=== PATIENT | female | born 1975 | race Two or more races ===

== ENCOUNTER 2024-07-13 13:34 | Emergency (ER) | payer MEDICAID, OTHER ==
[~2024-07-13] VITALS: Ht 160 cm; Wt 84.9 kg
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
[2024-07-13] MEDS: HYDROcodone-ACET 5/325MG TAB PO ONE (15:20)
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
[2024-07-13] MEDS ORDERED: IBUP-1456 PO (15:30)
[2024-07-13] MEDS ORDERED: METH-1182 PO (15:30)
[2024-07-13 15:40] VITALS: BP 148/98; PULSE 75; RESP 18; TEMP 98.7; O2SAT 96
== END 2024-07-13 15:42 | disposition home or self-care (01) ==
LOC: ER 13:34
DX: S16.1XXA Strain of muscle, fascia and tendon at neck level, initial encounter (principal); R51.9 Headache, unspecified; Z88.0 Allergy status to penicillin; V43.52XA Car driver injured in collision with other type car in traffic accident, initial encounter; Y93.89 Activity, other specified; Y92.488 Other paved roadways as the place of occurrence of the external cause; Y99.8 Other external cause status
CPT/HCPCS: 70450; 72125